=== PATIENT | female | born 2000 | race African-American/Black ===

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

== ENCOUNTER 2022-01-16 11:35 | Outpatient (CLI) | payer OTHER | END 2022-01-16 11:36 | disposition home or self-care (01) | LOC: CSHULT 11:35 | PROVIDERS: ATTEND Family Medicine | DX: O09.893 Supervision of other high risk pregnancies, third trimester (principal); Z3A.34 34 weeks gestation of pregnancy | CPT/HCPCS: 76805 ==